=== PATIENT | female | born 1950 | race Caucasian/White ===

== ENCOUNTER 2019-07-04 07:30 | Outpatient (CLI) | payer BC, SELFPAY ==
--- NOTE | 2019-07-04 12:32 | DI.US_ITS ---
EXAM: US PELVIS CLINICAL HISTORY: post menopausal bleeding N95.0, light spotting with pain recently. TECHNIQUE: Ultrasound was performed using standard protocol. COMPARISON: No exams were available for comparison FINDINGS: The uterus measures 7.4 x 2.6 x 5.6 cm. Endometrial stripe is 2.2 mm in thickness.A lower uterine seg ment anterior fibroid measures 2.7 x 2.7 x 2.5 cm, contains calcification. A lower uterine segment po sterior fibroid measures 2.8 x 2.9 x 3.2 cm. The right ovary measures 2.4 x 1.2 x 0.9 cm. The left ov jimmie was not visualized. IMPRESSION: Lower uterine segment fibroids are demonstrated. Posteriorly there is a 2.8 x 2.9 x 3.2 cm fibroid , anteriorly there is a 2.7 x 2.7 x 2.5 cm fibroid.
== END 2019-07-04 07:50 ==
PROVIDERS: Visit Provider Nurse Practitioner Family
DX: N95.0 Postmenopausal bleeding (principal); R10.2 Pelvic and perineal pain; D25.9 Leiomyoma of uterus, unspecified
CPT/HCPCS: 76856

== ENCOUNTER 2019-08-07 12:57 | Outpatient (REF) | payer BC, SELFPAY ==
--- NOTE | 2019-08-07 11:20 | ENDOMET_PTH ---
PATIENT: BARTOLO CASTELLANOS LOC: [facility] U#:[id number] AGE/SX: 68/F ROOM: RE08/07/[address]: Mine Luo : 1950 BED: DIS: 08/07/2019 SPEC #: [id number] RECD: 08/07/19 13:03 STATUS: WILL REQ #: [id number] ANA: 08/07/19 11:[address]: Mine Luo DEPT: Surgical Specimen RECD BY: Leila Kaur ENTERED: 08/07/19 13:03 SP TYPE: Endomet OTHR DR: Unknown,Unknown Tissues: 1 - ENDOMETRIUM BX/CURRETTE Procedures: GROSS AND MICRO LEVEL 4 Comments: [id number]
== END 2019-08-07 13:17 ==
LOC: LBN 12:57
PROVIDERS: Visit Provider Obstetrics & Gynecology Gynecology
DX: N95.0 Postmenopausal bleeding (principal); N85.8 Other specified noninflammatory disorders of uterus
CPT/HCPCS: 88305

== ENCOUNTER 2019-10-08 01:00 | Outpatient (CLI) | payer BC, SELFPAY ==
--- NOTE | 2019-10-08 12:27 | DI.US_ITS ---
EXAM: US PELVIS TRANSVAGINAL CLINICAL HISTORY: REPEAT IMAGES OF ENDOMETRIAL STRIPE. TRANSVAGINAL APPROACH, N95.0 POSTMENOPAUSAL BLEEDING TECHNIQUE: Ultrasound of the pelvis, both abdominal and transvaginal was performed using standard pr otocol. COMPARISON: US PELVIS from 07/04/2019 FINDINGS: KIDNEYS: Kidneys are symmetric in size. No evidence of renal calculi. No evidence of hydronephrosis. No renal mass or cyst identified. UTERUS: Position: Anteverted. Size: 6.5 x 3.0 x 4.5 cm Endometrium: 0.3 cm. Normal for patient's menstrual status. Myometrium: 3 fibroids are identified. The largest is seen posteriorly. It measures 3 x 2.6 x 3.6 c m. Two smaller fibroids are seen in the anterior fundal region. The smaller measures 1.4 x 1.6 x 1. 4 cm. The larger measures 2 x 1.7 x 2.1 cm. Cervix: Unremarkable. OVARIES: Right: 1.4 x 1.0 x 1.0 cm Cyst or mass: None. Left: Not visualized due to overlying bowel. CUL-DE-SAC: Free fluid: None. IMPRESSION: 1. Normal sonographic appearance of the kidneys. 2. Fibroid uterus. 3. Endometrial stripe within normal limits for the patient's menstrual status.
== END 2019-10-08 01:20 ==
PROVIDERS: PCP Family Medicine; Visit Provider Obstetrics & Gynecology Gynecology
DX: N95.0 Postmenopausal bleeding (principal); N85.4 Malposition of uterus; D25.9 Leiomyoma of uterus, unspecified
CPT/HCPCS: 76830; 76856

== ENCOUNTER 2020-12-10 01:05 | Outpatient (CLI) | payer MEDICAID, SELFPAY ==
--- NOTE | 2020-12-10 07:30 | DI.MAMMO_ITS ---
EXAM: MG MAMMO SCREENING CLINICAL HISTORY: screening,Z12.39 TECHNIQUE: Bilateral full field digital CC and MLO mammographic images were obtained with 3D tomosyn thesis and utilizing computer aided detection (CAD). COMPARISON: None. FINDINGS: Masses/Architectural Distortion: None seen. Microcalcifications: No suspicious pleomorphic-type are seen. Skin Thickening/Nipple Retraction: None. IMPRESSION: 1. No significant interval change with no specific features of malignancy noted. 2. Unless there is more urgent need, screening mammography is recommended, as per [employer] guidelines. BI-RADS Category 1 - Negative Breast Density - Category C - Heterogeneously dense Breast density category C or D implies that the patient has dense breast tissue. Dense breast tissue is very common and is not abnormal but dense breast tissue can make it harder to find cancer on a ma mmogram. Also, dense breast tissue may increase their breast cancer risk. This information about the result of the mammogram report was provided to the patient to raise their awareness. Use this report when you speak with the patient about their risks for breast cancer, which includes their family hist ory. At that time, you may recommend for more screening tests (Ultrasound or MRI) as they might be us eful based on their risk. A negative radiographic report should not delay biopsy if a dominant or clinically suspicious mass is present. Up to ten percent of cancers are not identified on mammography. A negative report may reinforce clinical impression. Adenosis and dense breasts may obscure an underlying neoplasm. False positive reports average 6 to 10%. Patient will receive a letter notifying them of these results.
== END 2020-12-10 01:25 ==
PROVIDERS: PCP Family Medicine; Visit Provider Nurse Practitioner Family
DX: Z12.31 Encounter for screening mammogram for malignant neoplasm of breast (principal)
CPT/HCPCS: 77063; 77067

== ENCOUNTER → 2025-02-13 12:51 | Outpatient (BNVA) | payer MEDICARE, MEDICAID, SELFPAY | PROVIDERS: PCP Family Medicine; Referring Provider Family Medicine; Visit Provider Student in an Organized Health Care Education/Training Program | DX: I87.2 Venous insufficiency (chronic) (peripheral) (principal) | CPT/HCPCS: 99203 ==